=== PATIENT | male | born 1960 | race Caucasian/White ===

== ENCOUNTER 2018-11-14 14:42 | Emergency (ER) | payer MEDICAID ==
[2018-11-14] MEDS: HYDROCODONE/APAP (10/325) TAB PO (20:16)
== END 2018-11-14 21:54 | disposition home or self-care (01) ==
LOC: E/R 14:42
DX: K40.90 Unilateral inguinal hernia, without obstruction or gangrene, not specified as recurrent (principal)
CPT/HCPCS: 74176; 99284-25